=== PATIENT | female | born 1960 | race Caucasian/White ===

== ENCOUNTER 2024-11-13 06:23 | Day surgery (SDC) | payer BC, SELFPAY ==
[2024-10-31 09:38] LABS: Hematocrit 40.8 % (37.0-47.0); Hemoglobin 13.9 g/dL (12.0-16.0); Mean Corp Hgb Conc. 34.1 g/dL (33.0-37.0); Mean Corpuscular Volume 93.6 fL (81.0-99.0); Platelet Count 203 10^3/uL (130-400); Red Cell Dist. Width 12.3 % (11.5-14.5)
[2024-10-31 10:12] LABS: Blood Urea Nitrogen 13 mg/dl (7-17); Calcium 8.8 mg/dl (8.4-10.2); Carbon Dioxide 22 mmol/L (22-30); Chloride 104 mmol/L (98-107); Glucose 75 mg/dl (70-99); Potassium 4.6 mmol/L (3.5-5.1); Sodium 135 mmol/L (135-145); eGFR > 60.00
[2024-10-31 13:27] VITALS: BMI 24.2
[2024-11-13] VITALS (20 sets, daily range): BP systolic 87–136; BP diastolic 48–86; BMI 24.2; BMI 25.2
[2024-11-13] MEDS: DECADRON 10 MG IV (09:08)
[2024-11-13] MEDS: NORMOSOL-R/PLASMALYTE-A 1000 IV (09:09)
[2024-11-13] MEDS: NEURONTIN 300 MG PO (09:19)
[2024-11-13] MEDS: TYLENOL 1000 MG PO (09:19)
--- NOTE | 2024-11-13 09:47 | W.IMMPOSTOP ---
Surgical Immed Post Op Note
-
Primary Surgeon:
Assisting Surgeon:
Pre-op Diagnosis:
Post-op Diagnosis:
Procedure Performed:
Anesthesia Type:
Specimen / Cultures:
Estimated Blood Loss:
Complications:
Operative Findings:
--- NOTE | 2024-11-13 09:47 | W.SUR.PREOP ---
Pre-Operative Surgical Note
-
I have examined this patient prior to the performance of the scheduled procedure.
The patient's condition is unchanged from the time of the current History and
Physical and the patient is able to undergo the scheduled procedure.
[2024-11-13] MEDS: HEPARIN 5000 UNITS SC (09:57)
--- NOTE | 2024-11-13 13:49 | W.IMMPOSTOP ---
Surgical Immed Post Op Note
-
Primary Surgeon: Marielle Pelaez DO
Pier Hand: FRANCOISE Liao
Pre-op Diagnosis: Pelvic Organ prolapse, stage 3
Post-op Diagnosis: same
Procedure Performed: Robotic total laparoscopic hysterectomy, bilateral salpingo-oopherectomy (Dr. Pelaez);
Dr. Marcus to perform robotic sacrocolpopexy, posterior colporrhaphy, perineoplasty and cystoscopy.
Anesthesia Type: general ET Dr. Young
Specimen / Cultures: uterus, cervix, bilateral fallopian tubes and ovaries
Estimated Blood Loss: 5 ml
Complications: none
Operative Findings: Normal appearing uterus with stage 3 prolapse. Normal appearing bilateral fallopian tubes and bilateral atrophic ovaries.
Counts correct times 2.
Patient was stable through case and through hand off to Dr. Marcus.
[2024-11-13] MEDS: DILAUDID 0.5 MG IV (15:55)
[2024-11-13] MEDS: DILAUDID 0.25 MG IV (16:55)
[2024-11-13] MEDS: TYLENOL 650 MG PO (18:10)
[2024-11-13] MEDS: ROXICODONE 5 MG PO (20:04)
--- NOTE | 2024-11-13 20:49 | SUR.PHASEII ---
Received pt from [facility] and pt requested to ask Dr Pelaez to be admitted. Pt states she feels 'shaky' and temp is 97.1. Pt also c/o pain 12/02. Dr Pelaez to admit pt. Awaiting orders.
--- NOTE | 2024-11-13 20:56 | W.PN.UPDATE ---
Update Note
Progress Note Update
[employer] contacted me via [place] [employer] to let me know that Lauren and her are very hestitant with her going home after surgery tonight. She had RA [facility] BSO sacrocolpopexy, posterior colporrhaphy, perineoplasty. She had been leary of going home
since we preop consult. She has catheter in since was unable to void and did not want to go home with catheter. has terminal cancer and they both prefer her to stay.
Admission orders entered.
VSS reported by RN.
Will see her tomorrow.
ALerted Dr. Marcus via TT that patient is staying overnight.
[2024-11-13] MEDS: DESYREL 50 MG PO (21:44)
[2024-11-13] MEDS: TORADOL 15 MG IV (21:45)
[2024-11-14] MEDS: TORADOL 15 MG IV ×2 (02:48→09:01)
[2024-11-14 02:53] VITALS: BP 120/69
[2024-11-14] MEDS: ROXICODONE 5 MG PO ×4 (02:57→21:37)
[2024-11-14] MEDS: SYNTHROID 112 MCG PO (05:22)
[2024-11-14 06:24] LABS: Hematocrit 34.1 % (37.0-47.0); Hemoglobin 11.7 g/dL (12.0-16.0); Mean Corp Hgb Conc. 34.3 g/dL (33.0-37.0); Mean Corpuscular Volume 92.9 fL (81.0-99.0); Nucleated Red Blood Cells % 0 %; Platelet Count 168 10^3/uL (130-400); Red Cell Dist. Width 12.0 % (11.5-14.5)
--- NOTE | 2024-11-14 06:39 | W.PN.GYN ---
Addendum entered and electronically signed by Wisam Marcus MD 11/14/24 07:37:
Patient's sodium was low this morning to 125, so medicine was consulted for evaluation and treatment.
Wisam Marcus MD
Original Note:
Today's Communication / Plan
-
d/c Negro catheter
d/c home
Physician Note
-
Assessment and Plan:
64 yo woman POD 1 s/p robotic TLH, sacrocolpopexy, posterior repair, sling and cystoscopy: patient meeting postoperative milestones and doing well on POD 1.
1. Posoperative care
-CBC and BMP WNL
-UOP Adequate
-transition to po pain medications
-regular diet
-scds for dvt ppx
-encourage ambulation
-IS 10x/hour
-negro removed this am, await voiding trial
2. Dispo
-d/c home today
Subjective
pain well controlled. no acute complaints. ambulated overnight, minimal vagnial bleeding, denies fevers, chills, nausea/vomiting, chest pain, sob, or leg pain.
Objective
Intake and Output
11/11/24 11/12/24 11/13/24 11/14/24
06:59 06:59 06:59 06:59
Intake Total 1960 / 1960
Output Total 1175 / 1175
Balance 785 / 785
Intake:
Oral fluids 960 / 960
IV fluids (Total) 1000 / 1000
Normosal 1000 / 1000
Output:
Urine, Negro 1175 / 1175
Vital Signs
Temp Pulse Resp BP Pulse Ox
98 F 75 14 120/69 97
11/14/24 02:53 11/14/24 02:53 11/14/24 02:53 11/14/24 02:53 11/14/24 02:53
Lab Results
11/14/24 05:40
Exam:
-incisions: clean, dry, intact
-abdomen: soft, nontender, non-distended
-gu: minimal spotting
[2024-11-14 06:51] LABS: Blood Urea Nitrogen 6 mg/dl (7-17); Carbon Dioxide 23 mmol/L (22-30); Chloride 97 mmol/L (98-107); Estimated Creatinine Clearance 93 ml/min; Potassium 3.8 mmol/L (3.5-5.1); Sodium 125 mmol/L (135-145)
[2024-11-14 07:15] VITALS: BP 115/58
[2024-11-14] MEDS: COLACE 100 MG PO ×2 (07:43→21:37)
[2024-11-14] MEDS: WELLBUTRIN XL (24 hour extended release) 300 MG PO (07:43)
--- NOTE | 2024-11-14 08:57 | CON.HOSP ---
Consultation
-
Date/Time Consultation Requested: 11/14/24729
Date/Time Consultation Performed: 11/14/24829
Requesting Provider: Dr Wisam Marcus
Performing Provider: Dr Diony Rhoades
Reason for Consultation: Hyponatremia
Family Physician
-
Family Physician: Marci Fletcher MD
Chief Complaint
-
Hyponatremia
History of Present Illness
Patient is a 64-year-old female with past medical history of hypothyroidism, depression/anxiety, obesity, osteoporosis, cystocele and pelvic prolapse was brought in by [employer] service for an elective laparoscopic hysterectomy/BSO and
sacrocolpopexy/colporrhaphy. Patient underwent surgery yesterday and was uneventful, postoperatively patient was having significant pain and has been given IV and oral point medication combination. During the morning on blood work patient was
noted to be hyponatremic with blood sodium of 125, patient known baseline of close to 135 from earlier in the month, hospitalist service were consulted for further assessment.
During my visit Ms. Lambert was sitting in the chair comfortably having her breakfast. Preliminary complaint was ongoing diffuse abdominal discomfort. She is feeling a bit fatigued although not lethargic. Denies of having any chest
discomfort/dizziness/palpitations/nausea/vomiting. Patient has denied of having any previous episodes of hyponatremia. Patient stated of drinking large amount of water yesterday as was not able to make urine. No reported urinary retention.
Patient not voicing any other major complaints.
Medical History
Past Medical History
Past Medical History: Reports Other
Additional Past Medical History:
hypothyroidism, depression/anxiety, obesity, osteoporosis, cystocele and pelvic prolapse
Past Surgical History: Reports Other
Social History
Tobacco: Non-smoker
Alcohol: None
Drug: None
Family History
Family History: Reviewed & Not Pertinent
Allergies / Home Medications
Allergies reflects when Allergies were last updated in [employer].
Home Medications with original date entered in [employer]
Allergy/Medication List:
Allergies
Allergy/AdvReac Type Severity Reaction Status Date / Time
No Known Drug Allergies Allergy na Verified 11/13/24 08:43
scallops Allergy Vomiting Uncoded 11/13/24 08:43
Home Medications
alendronate 70 mg tablet 70 mg PO WHITE 11/06/24
bupropion HCl 300 mg 24 hr tablet, extended release (Wellbutrin XL) 300 mg PO DAILY 11/06/24
estradiol-norethindrone acet 1 mg-0.5 mg tablet (Mimvey) 1 tab PO DAILY 11/06/24
fluticasone propionate 50 mcg/actuation nasal spray,suspension 1 spray intranasal PRN PRN congestion 11/06/24
levothyroxine 112 mcg tablet (Synthroid) 112 mcg PO DAILY 11/06/24
multivitamin 1 tab PO DAILY 11/06/24
tirzepatide (weight loss) 5 mg/0.5 mL subcutaneous pen injector (Zepbound) 5 mg SC QWEEK weight loss 11/06/24
trazodone 50 mg tablet 50 mg PO HS 11/06/24
oxycodone 5 mg tablet 5 mg PO Q6H PRN severe pain #14 tabs 11/13/24
Review of Systems
-
A 12 point Review of Systems was completed except as noted: Yes
Physical Exam
Vital Signs
Vital Signs
Temp Pulse Resp BP Pulse Ox
98.7 F 68 18 115/58 99
11/14/24 07:15 11/14/24 07:15 11/14/24 07:15 11/14/24 07:15 11/14/24 07:15
Physical Exam
General: Well Developed, Well Nourished and No Apparent Distress
HEENT: Normocephalic, Moist Mucous Membranes and Atraumatic
Respiratory: Clear
Cardiac: S1/S2 and Regular Rhythm; Negative Murmur or Rub
GI: Soft, Non Distended, Tender (Diffuse) and Other (Intact laproscopic insertion site)
Rectal: Deferred by Provider
Musculoskeletal: No Edema
Skin: Negative Rash
Neuro: Nonfocal/Grossly Intact
Laboratory Results
-
Laboratory Results
11/14/24 05:40
11/14/24 05:40
Data Reviewed
-
Lab Data: Labs Reviewed and Discussed with Patient
Impression / Plan
-
1. Acute hyponatremia
- Patient will baseline close to 135 from blood work from 31 October, sodium of 125 today
- Patient had increased oral liquid intake yesterday as was making less urine, start patient on fluid restriction 40oz
- Patient not on any IV fluid, avoid further IV fluid as possible
- Medication reviewed and no new medication change explaining hyponatremia
- Pain is a factor causing ADH excess in hyponatremia, currently being controlled with IV and oral pain medication
- Check urine sodium and urine osmole
- Repeat blood work in the morning tomorrow, if not improved will consider involving nephrology for possible tolvaptan dosing.
2. S/p laparoscopic hysterectomy/bilateral salpingo-oophorectomy
s/p colporrhaphy/[place] colpopexy
- POD 1, having diffuse pain although no other complaint
- Postoperative care per primary team
3. Hypothyroidism
- Maintained on home dose of levothyroxine
- Will consider checking TSH/free T4 although clinically unlikely to cause drops in sodium in short period of time
4. Anemia of acute blood loss
- Hemoglobin dropped to 11.5 from 13.5 pre-operatively
- monitor
5. Depression/anxiety
- Okay to continue home regimen of bupropion/trazodone
DVT prophylaxis -SCD
Full code
Total time spent : 76 mins
I personally saw and examined the patient.
I have reviewed all diagnostic interpretations and treatment plans as written.
Time includes patient management by me, time spent at the patients bedside, time to review lab and imaging results, discussing patient care, documentation in the medical record, and time spent with the family or caregiver and discussing care plan
with RN/Consultants.
--- NOTE | 2024-11-14 11:05 | CM ---
Cm reviewed medical records. CM met with patient in room. Patient confirmed demographics. Patient lives independently with . Patient does not have a history of VN, SNF or DME. Safia is active with her PCP. Patient uses [facility] for medication.
PLAN: home with no needs.
[2024-11-14 11:10] VITALS: BP 118/64
--- NOTE | 2024-11-14 15:00 | W.PN.OBG.DWH ---
Today's Communication / Plan
-
pain mgmt
bladder mgmt per urogyn
reg diet
oob
recheck labs in am
Assessment/Plan
-
POD#1 s/p RA TLH BSO with sacrocolpopexy. posterior repair
Voiding but still doesn't feel she is emptying enough. Care per Dr. Marcus.
Cont postop care
Fluid restrict. Appreciate hospitalist input.
REcheck labs in am.
Subjective Data
-
Feeling ok. Feels ' as if I got punched in the stomach'
Pain meds helping.
Denies any fever, chills, N/v, dysuria, heavy vaginal bleeding.
No CP, SOB, dizziness or lightheadedness
Dee diet
Objective Data
-
Laboratory Results
11/14/24 05:40
11/14/24 05:40
Vital Signs
Temp Pulse Resp BP Pulse Ox
98.8 F 70 16 118/64 98
11/14/24 11:10 11/14/24 11:10 11/14/24 11:10 11/14/24 11:10 11/14/24 11:10
VSS afeb
Abd: soft NDNT inc cdi
ext: no calf pain
Sodium this am 125K
I communicated with Dr. Marcus and agreed with med consult.
Agreee likely related to IV fluids, pain mgmt.
[2024-11-14 15:15] VITALS: BP 125/67
[2024-11-14] MEDS: MOTRIN 600 MG PO (18:00)
[2024-11-14] MEDS: DESYREL 50 MG PO (21:37)
[2024-11-14 23:11] VITALS: BP 102/56
[2024-11-15 03:00] VITALS: BP 107/65
[2024-11-15] MEDS: ROXICODONE 5 MG PO ×2 (04:12→08:49)
[2024-11-15] MEDS: MOTRIN 600 MG PO (04:12)
[2024-11-15] MEDS: SYNTHROID 112 MCG PO (04:12)
[2024-11-15 06:17] LABS: Hematocrit 33.4 % (37.0-47.0); Hemoglobin 11.6 g/dL (12.0-16.0); Mean Corp Hgb Conc. 34.7 g/dL (33.0-37.0); Mean Corpuscular Volume 91.5 fL (81.0-99.0); Platelet Count 151 10^3/uL (130-400); Red Cell Dist. Width 12.1 % (11.5-14.5)
[2024-11-15 06:41] LABS: Blood Urea Nitrogen 8 mg/dl (7-17); Calcium 8.0 mg/dl (8.4-10.2); Carbon Dioxide 24 mmol/L (22-30); Chloride 106 mmol/L (98-107); Estimated Creatinine Clearance 93 ml/min; Glucose 88 mg/dl (70-99); Potassium 3.9 mmol/L (3.5-5.1); Sodium 135 mmol/L (135-145); eGFR > 60.00
[2024-11-15 07:20] VITALS: BP 116/64
--- NOTE | 2024-11-15 08:21 | W.PN.OBG.DWH ---
Today's Communication / Plan
-
dc home today
Assessment/Plan
-
Postop day #2 s/p RA TLH BSO with sacrocolpopexy, post repair
Hyponatremia resolved
Stable for dc home
Subjective Data
-
No complaints
Would like to go home.
No difficulty with urination. Going freuqently
No vaginal bleeding.
No SOB, CP
[id number] pain control.
Objective Data
-
Laboratory Results
11/15/24 05:36
11/15/24 05:36
Vital Signs
Temp Pulse Resp BP Pulse Ox
98.5 F 68 16 107/65 94
11/15/24 03:00 11/15/24 03:00 11/15/24 03:00 11/15/24 03:00 11/15/24 03:00
VSS afeb
abd: soft NDNT inc cdi
ext no calf pain
--- NOTE | 2024-11-15 08:42 | W.PN.GYN ---
Today's Communication / Plan
-
discharge per primary team
Physician Note
-
Urogynecology Progress Note:
Patient is a 64yoF PMH POP currently POD2 s/p robot assisted TLH BSO with sacrocolpopexy, post colporrhaphy on 11/13/24. Postop course was complicated by hyponatremia. Medicince service was consulted and suspected cause may have been from increased
fluid intake immediately postop. They recommended nephrology constulation if no improvement today. Hyponatremia had resolved.
Patient was evaluated on AM rounds. Patient�s pain and abdominal bloating is controlled and improved since yesterday. She is tolerating diet and po fluids and ambulated to the bathroom without difficulty. She has been feeling urinary frequency since
negro catheter removal. Denies dysuria, suprapubic discomfort. Last BM 3 days ago but does not feel constipated. Reports improvement in vaginal bleeding, she went through one pad overnight. She denies nausea, vomiting, chest pain, SOB.
O :
GA: Well appearing female in NAD
HEENT: Normocephalic, EOMI
Abd: soft, nondistended, sutures intact with dermabond, incisional tenderness
: Minimal vaginal spotting noted in pad
Ext: no lower extremity edema
Vital Signs
Temp Pulse Resp BP Pulse Ox
98.5 F 68 16 107/65 94
11/15/24 03:00 11/15/24 03:00 11/15/24 03:00 11/15/24 03:00 11/15/24 03:00
Intake and Output
11/14/24 11/15/24 11/16/24
06:59 06:59 06:59
Intake Total 1960 / 1960 480 / 480
Output Total 1175 / 1175 1400 / 1400
Balance 785 / 785 -920 / -920
Intake:
Oral fluids 960 / 960 480 / 480
IV fluids (Total) 1000 / 1000
Normosal 1000 / 1000
Output:
Urine, Negro 1175 / 1175
Urine, Voided 1400 / 1400
Laboratory Results
11/15/24 05:36
11/15/24 05:36
A: 64yoF currently POD2 s/p robot assisted TLH BSO with sacrocolpopexy, post colporrhaphy on 11/13/24. Patient is stable
Hyponatremia had resolved.
Plan
- Followup medicine team reccs
- Discharge per enterprise analyst team
- Monitor vaginal incision bleeding
- Continue ibuprofen/Tylenol prn and vaginal ice packs for mild/moderate pain
- Recommend starting bowel regimen including Senna-S to keep soft BMs and to avoid straining
- Followup in two weeks for postop visit; appointment made, office will call to confirm
[2024-11-15] MEDS: WELLBUTRIN XL (24 hour extended release) 300 MG PO (08:49)
[2024-11-15] MEDS: COLACE 100 MG PO (08:49)
[2024-11-15 10:25] VITALS: BP 134/61
[2024-11-15 14:49] LABS: Hepatitis C Antibody Negative (Negative)
--- NOTE | 2024-11-15 14:49 | CM ---
Patient seen bedside.
per patient d/c home today, no home care needs.
Spouse will transport.
Plan: home no needs.
== END 2024-11-15 09:40 | disposition home or self-care (01) ==
LOC: SDS 06:23
PROVIDERS: Hospitalist; ATTENDING PHYSICIAN Obstetrics & Gynecology; FAMILY PHYSICIAN Student in an Organized Health Care Education/Training Program; REFERRING PHYSICIAN Obstetrics & Gynecology
DX: N81.2 Incomplete uterovaginal prolapse (principal); N39.3 Stress incontinence (female) (male); N36.41 Hypermobility of urethra; E87.1 Hypo-osmolality and hyponatremia
CPT/HCPCS: 57425; 58571; 57250; 57288; 36415; 80048; 80051; 82565; 83935; 84300; 84520; 85025; 85027; 86803; 86850; 86900; 86901; 88305; 93005; C1713; C1763; C1771

== ENCOUNTER 2025-02-18 08:07 | Outpatient (RCR) | payer BC, SELFPAY | END 2025-02-18 23:59 | disposition home or self-care (01) | LOC: RPT 08:07 | PROVIDERS: ATTENDING PHYSICIAN Obstetrics & Gynecology; FAMILY PHYSICIAN Student in an Organized Health Care Education/Training Program | DX: M62.89 Other specified disorders of muscle (principal); Z73.6 Limitation of activities due to disability; R32 Unspecified urinary incontinence; R35.0 Frequency of micturition; R39.15 Urgency of urination | CPT/HCPCS: 97110; 97140; 97163; 97530 ==

== ENCOUNTER 2025-03-12 06:58 | Outpatient (RCR) | payer BC, SELFPAY | END 2025-03-12 23:59 | disposition home or self-care (01) | LOC: RPT 06:58 | PROVIDERS: ATTENDING PHYSICIAN Obstetrics & Gynecology; FAMILY PHYSICIAN Student in an Organized Health Care Education/Training Program | DX: M62.89 Other specified disorders of muscle (principal); Z73.6 Limitation of activities due to disability; R32 Unspecified urinary incontinence; R35.0 Frequency of micturition; R39.15 Urgency of urination | CPT/HCPCS: 97014; 97110; 97112; 97140; 97530 ==

== ENCOUNTER → 2025-03-27 10:46 | Outpatient (REF) | payer BC, SELFPAY | LOC: RAD 10:46 | PROVIDERS: ATTENDING PHYSICIAN Obstetrics & Gynecology; FAMILY PHYSICIAN Student in an Organized Health Care Education/Training Program | DX: Z78.0 Asymptomatic menopausal state (principal); M81.0 Age-related osteoporosis without current pathological fracture | CPT/HCPCS: 77080 ==

== ENCOUNTER 2025-04-23 07:15 | Outpatient (RCR) | payer BC, SELFPAY | END 2025-04-23 13:55 | disposition home or self-care (01) | LOC: RPT 07:15 | PROVIDERS: ATTENDING PHYSICIAN Obstetrics & Gynecology; FAMILY PHYSICIAN Student in an Organized Health Care Education/Training Program | DX: M62.89 Other specified disorders of muscle (principal); Z73.6 Limitation of activities due to disability; R32 Unspecified urinary incontinence; R35.0 Frequency of micturition; R39.15 Urgency of urination | CPT/HCPCS: 97014; 97110; 97112; 97140; 97530 ==